=== PATIENT | male | born 1965 | race African-American/Black ===

== ENCOUNTER 2018-03-15 23:03 | Inpatient (IN) | payer SELFPAY ==
--- NOTE | 2018-03-15 23:18 | ER Document Report ---
ED General - General Stated Complaint: CHEST PAIN Time Seen by Provider: 03/15/18 23:08 Notes: Patient is a 52-year-old male who presents with complaint of difficulty breathing and chest pain with palpitations and feel like his heart was racing. When paramedics arrived he was very short of breath. The placed him on 4 L of oxygen because O2 saturations were in the 80s. Patient was found to be in a rapid narrow complex irregular rhythm. They gave him 20 mg of Cardizem IV. This slowed down his rhythm and he is now showing atrial flutter. Patient says he has some chest tightness. He was given nitro as well as fentanyl. He said this did improve his chest tightness on but also the swelling of the right significantly improved his chest tightness. He still feels short of breath. He still requiring oxygen. He still hypoxic. He does not wear oxygen at baseline. He is a smoker. He said he was told once before that an VT however when he visited the lead warehouse associate they informed him that he actually did not have an VT. No history of cardiac stents. No recent fevers or infections. No other complaints at this time. Past Medical History - Social History Smoking Status: Current Every Day Smoker Frequency of alcohol use: None Drug Abuse: None Family History: Reviewed & Not Pertinent Review of Systems - Review of Systems Notes: My Normal Review Basic REVIEW OF SYSTEMS: CONSTITUTIONAL : Denies fever, chills, or sweats. Denies recent illness. EENT: Denies eye, ear, throat, or mouth pain or symptoms. Denies nasal or sinus congestion. CARDIOVASCULAR: Chest tightness. RESPIRATORY: Dyspnea GASTROINTESTINAL: Denies abdominal pain. Denies nausea, vomiting, or diarrhea. GENITOURINARY: Denies difficulty urinating, painful urination, burning, frequency, or blood in urine. MUSCULOSKELETAL: Denies neck or back pain or joint pain or swelling. SKIN: Denies rash or skin lesions. NEUROLOGICAL: Denies altered mental status or loss of consciousness. Denies headache. Denies weakness or paralysis or loss of use of either side. Denies problems with gait or speech. Denies sensory or motor loss. ALL OTHER SYSTEMS REVIEWED AND NEGATIVE. Physical Exam - Vital signs Vitals: Temp Pulse Resp BP Pulse Ox 98.4 F 61 28 H 156/82 H 91 L 03/15/18 23:14 03/15/18 23:14 03/15/18 23:14 03/15/18 23:14 03/15/18 23:14 - Notes Notes: General Appearance: Well nourished, alert, cooperative, moderate acute distress , no obvious discomfort. Vitals: reviewed, See vital signs table. Head: no swelling or tenderness to the head Eyes: PERRL, EOMI, Conjuctiva clear Mouth: No decreasd moisture Throat: No tonsillar inflammation, No airway obstruction, No lymphadenopathy Neck: Supple, no neck tenderness, No thyromegaly Lungs: Mild scattered wheezing, No rales, No rhonci, No accessory muscle use, good air exchange bilaterally. Heart: Normal rate, Irregular rythm, No murmur, no rub Abdomen: Normal BS, soft, No rigidity, No abdominal tenderness, No guarding, no rebound, no abdominal masses, no organomegaly Extremities: strength 5/5 in all extremities, good pulses in all extremities, no swelling or tenderness in the extremities, 1+ B/L edema. Skin: warm, dry, appropriate color, no rash Neuro: speech clear, oriented x 3, normal affect, responds appropriately to questions. Course - Re-evaluation Re-evalutation: 03/15/18 23:14 EKG is reviewed and interpreted by me. EKG shows atrial flutter with variable block. He ranges are from a 3-1 4-1 block. Rate is proximally [address] segment elevation in lead V3. Mild ST segment depression in lead V5 and V6. QRS duration QTc intervals are within normal range. Currently I do not have an old EKG for comparison being that the patient's name is placed in the system incorrectly and therefore I cannot look up his old EKG at this time. 03/16/18 00:51 Patient's heart rates are increased some and it was causing become symptomatic and we are starting some chest tightness and shortness of breath. Despite this he still is very comfortable however being that the Cardizem bolus started to wear off and his heart rate was increasing I did want to start on Cardizem drip. I order inform the nurse. Now or not allowed to mix drips down here so as to go to the nursing marina sales and service supervisor. Nursing marina sales and service supervisor was informed approximately hour ago and she still has not brought back to the drip and now the patient's heart rate is starting to increase and is get more comfortable. I therefore have ordered a repeat bolus of Cardizem. 03/16/18 01:59 Patient still feels short of breath and having some recurrent chest pain despite having lung felder. I will do a CT of the chest to make sure patient does not have evidence of PE. - Vital Signs Vital signs: Temp Pulse Resp BP Pulse Ox 98.4 F 61 16 138/90 H 99 03/15/18 23:14 03/15/18 23:14 03/16/18 02:41 03/16/18 02:41 03/16/18 02:41 - Laboratory Result Diagrams: 03/15/18 23:21 03/15/18 23:21 Laboratory results interpreted by me: 03/15/18 03/15/18 03/15/18 23:21 23:21 23:21 WBC 12.1 H RBC 3.95 L Hgb 13.0 L MCV 98 H Absolute Neutrophils 8.5 H Chloride 108 H BUN 22 H NT-Pro-B Natriuret Pep 1600 H Discharge - Discharge Clinical Impression: Atrial flutter Qualifiers: Atrial flutter type: unspecified Qualified Code(s): I48.92 - Unspecified atrial flutter Pulmonary edema Qualifiers: Chronicity: acute Qualified Code(s): J81.0 - Acute pulmonary edema Chest pain Qualifiers: Chest pain type: unspecified Qualified Code(s): R07.9 - Chest pain, unspecified Condition: Stable Disposition: ADMITTED INPATIENT Admitting Provider: Hospitalist Unit Admitted: [facility]
[2018-03-15 23:38] LABS: ABSOLUTE BASOPHILS # (AUTO) 0.1 10^3/uL (0.0-0.2); ABSOLUTE EOSINOPHILS # (AUTO) 0.1 10^3/uL (0.0-0.6); ABSOLUTE LYMPHOCYTES (AUTO) 2.4 10^3/uL (0.5-4.7); ABSOLUTE NEUT (AUTO) 8.5 10^3/uL (1.7-8.2); BASOPHILS % (AUTO) 0.7 % (0-2); EOSINOPHILS % (AUTO) 0.9 % (0-6); HEMATOCRIT 38.6 % (37.9-51.0); LYMPHOCYTES % (AUTO) 19.5 % (13-45); MEAN CORPUSCULAR HEMOGLOBIN 32.9 pg (27.0-33.4); MEAN CORPUSCULAR HGB CONC 33.7 g/dL (32.0-36.0); MEAN CORPUSCULAR VOLUME 98 fl (80-97); MONOCYTES % (AUTO) 8.3 % (3-13); PLATELET COUNT 232 10^3/uL (150-450); RED BLOOD COUNT 3.95 10^6/uL (4.35-5.55); RED CELL DISTRIBUTION WIDTH 12.8 % (11.5-14.0); SEGMENTED NEUTROPHILS % (AUTO) 70.6 % (42-78); TOTAL CELLS COUNTED % (AUTO) 100 %; WHITE BLOOD COUNT 12.1 10^3/uL (4.0-10.5)
[2018-03-16] LABS: ALANINE AMINOTRANSFERASE 39 U/L (21-72); ALBUMIN 3.8 g/dL (3.5-5.0); ALKALINE PHOSPHATASE 72 U/L (38-126); ANION GAP 7 (5-19); ASPARTATE AMINO TRANSFERASE 32 U/L (17-59); BILIRUBIN,DIRECT 0.3 mg/dL (0.0-0.4); BILIRUBIN,TOTAL 0.9 mg/dL (0.2-1.3); BLOOD UREA NITROGEN 22 mg/dL (7-20); CALCIUM 9.2 mg/dL (8.4-10.2); CARBON DIOXIDE 25 mmol/L (22-30); CHLORIDE 108 mmol/L (98-107); GLUCOSE 100 mg/dL (75-110); POTASSIUM 4.1 mmol/L (3.6-5.0); SODIUM 139.7 mmol/L (137-145); TOTAL PROTEIN 6.9 g/dL (6.3-8.2)
[2018-03-16 00:11] LABS: TROPONIN I 0.018 ng/mL
--- NOTE | 2018-03-16 00:11 | RADIOLOGY REPORT (SQ) ---
EXAM DESCRIPTION: XR CHEST 1 VIEW COMPLETED DATE/TME: 03/15/2018 23:13 CLINICAL HISTORY: 52 years, Male, dyspnea COMPARISON: None. NUMBER OF VIEWS: One TECHNIQUE: AP view of the chest LIMITATIONS: None. FINDINGS: Mild pulmonary vascular congestion. The heart is enlarged. There is no pneumothorax or pleural effusion. There is no acute fracture. IMPRESSION: Mild pulmonary vascular congestion 2010 [facility] [employer]- All Rights Reserved
[2018-03-16] MEDS ORDERED: DILTIAZEM HCL INJ 25 MG/5 ML VIAL IV ONE (00:46)
[2018-03-16] MEDS: DILTIAZEM HCL/D5W 125 MG/125 ML RTUINJ IV PRN ×2 (01:00→08:56)
[2018-03-16] MEDS ORDERED: NORMAL SALINE 500 ML IV ONE (01:59)
[2018-03-16] MEDS ORDERED: MORPHINE SULFATE 10 MG/ML INJ IV ONE (01:59)
--- NOTE | 2018-03-16 02:55 | RADIOLOGY REPORT (SQ) ---
CLINICAL HISTORY: dyspnea, chest pain COMPARISON: None. TECHNIQUE: CT CHEST ANGIOGRAPHY WITHOUT THEN WITH IV CONTRAST on 03/16/2018 1:58 AM CDT. MIPS reconstructions were generated. This exam was performed according to our departmental dose-optimization program, which includes automated exposure control, adjustment of the mA and/or kV according to patient size and/or use of iterative reconstruction technique. MIP images were generated. FINDINGS: Thoracic aorta is normal in course and caliber without aneurysm or dissection. Pulmonary arteries are adequately opacified without acute or chronic filling defects. The heart is moderately enlarged. There is no pericardial effusion. Intrathoracic lymph nodes are not enlarged. There is a trace left pleural effusion. There is a small right pleural effusion. Central airways are patent. There is interlobular septal thickening in the lower lungs. There is patchy bibasilar airspace disease. There are no acute abnormalities within the limited images of the upper abdomen. There are no acute osseous findings. No suspicious bony lesions. IMPRESSION: No aortic dissection or aneurysm. No pulmonary embolus. Cardiomegaly with pleural effusions, probable pulmonary edema. Difficult to exclude developing bibasilar pneumonia.
[2018-03-16] MEDS ORDERED: FUROSEMIDE INJ/PF 40 MG/4 ML SDV IV ONE (03:11)
[2018-03-16] MEDS ORDERED: MAG HYDROX/AL HYDROX/SIMETH SUSP 30 ML UDCUP PO PRN (03:29)
[2018-03-16] MEDS ORDERED: ACETAMINOPHEN 325 MG TABLET PO PRN (03:29)
[2018-03-16] MEDS ORDERED: PROMETHAZINE HCL INJ 25 MG/1 ML VIAL IV PRN (03:29)
[2018-03-16] MEDS ORDERED: IPRATROPIUM/ALBUTEROL 0.5-2.5 MG/3 ML AMPUL NEB PRN (03:29)
[2018-03-16] MEDS ORDERED: PROMETHAZINE HCL 25 MG TABLET PO PRN (03:29)
[2018-03-16 03:46] LABS: INTERNATIONAL RATION (INR) 0.96; PROTHROMBIN TIME 13.3 SEC (11.4-15.4)
[2018-03-16] MEDS ORDERED: DILTIAZEM HCL 30 MG TABLET PO ONE (03:50)
[2018-03-16] MEDS ORDERED: NICOTINE 14 MG/24 HR PATCH.TD24 TD PRN (04:13)
[2018-03-16] MEDS ORDERED: METOPROLOL TARTRATE PF/INJ 5 MG/5 ML SDV IV PRN (04:47)
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
[2018-03-16] MEDS: ENOXAPARIN SODIUM INJ 100 MG/1 ML DISP.SYRIN SUBCUT SCH ×2 (05:24→17:21)
[2018-03-16 06:32] LABS: ARTERIAL BLOOD BASE EXCESS -0.5 mmol/L; ARTERIAL BLOOD FIO2 40%; ARTERIAL BLOOD HCO3 22.7 mmol/L (20-24); ARTERIAL BLOOD O2 SATURATION 97.5 % (94-98); ARTERIAL BLOOD PCO2 33.2 mmHg (35-45); ARTERIAL BLOOD PH 7.45 (7.35-7.45); ARTERIAL BLOOD PO2 93.8 mmHg (80-100); ARTERIAL BLOOD TOTAL CO2 23.7 mmol/L (23-27)
--- NOTE | 2018-03-16 08:24 | EKG REPORT ---
SEVERITY:- ABNORMAL ECG - A-FLUTTER W/ PREDOM 4:1 AV BLOCK, A-RATE 258 LVH WITH SECONDARY REPOLARIZATION ABNORMALITY ANTERIOR INFARCT, AGE INDETERMINATE : Confirmed by: Jaziel Woodson 16-Mar-2018 08:23:44
[2018-03-16] MEDS ORDERED: FUROSEMIDE INJ/PF 40 MG/4 ML SDV IV SCH (10:00)
[2018-03-16] MEDS ORDERED: ENOXAPARIN SODIUM INJ 40 MG/0.4 ML DISP.SYRIN SUBCUT SCH (10:00)
[2018-03-16 11:10] LABS: APPEARANCE,URINE CLEAR; BILIRUBIN,URINE NEGATIVE (NEGATIVE); COLOR,URINE COLORLESS; GLUCOSE, URINE NEGATIVE (NEGATIVE); KETONES,URINE NEGATIVE (NEGATIVE); LEUKOCYTE ESTERASE,URINE NEGATIVE (NEGATIVE); NITRITE,URINE NEGATIVE (NEGATIVE); PROTEIN,URINE NEGATIVE (NEGATIVE); URINE SPECIFIC GRAVITY 1.005; UROBILINOGEN,URINE NEGATIVE mg/dL (<2.0)
[2018-03-16 11:32] LABS: URINE AMPHETAMINES SCREEN NEGATIVE; URINE BARBITURATES SCREEN NEGATIVE; URINE BENZODIAZEPINES SCREEN NEGATIVE; URINE COCAINE SCREEN NEGATIVE; URINE MARIJUANA (THC) SCREEN NEGATIVE; URINE METHADONE SCREEN NEGATIVE; URINE PHENCYCLIDINE SCREEN NEGATIVE
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
[2018-03-16] MEDS: LOSARTAN POTASSIUM 25 MG TABLET PO SCH (12:57)
[2018-03-16] MEDS ORDERED: METOPROLOL TARTRATE 25 MG TABLET PO ONE (15:42)
--- NOTE | 2018-03-16 18:34 | XCELERA REPORT ---
[address] [address] Transthoracic Echocardiogram Report Name: SOCORRO FLORES Age: 52 yrs Gender: Male : 1965 Patient Status: Inpatient Patient Location: [address] [place] [address] Study Date: 03/16/2018 09:40 AM Height: 72 in Weight: 194 lb BSA: 2.1 m2 Procedure: A complete two-dimensional transthoracic echocardiogram was performed (2D, M-mode, spectral and color flow Doppler). The study was technically adequate with some images being suboptimal in quality. Reason For Study: a flutter Ordering Physician: TIFFANY AUGUSTIN Performed By: Shira Dobbins Interpretation Summary LV diastolic function could not be adequately assessed due to atrial fibrilation. Left ventricular systolic function is low normal. There is mild concentric left ventricular hypertrophy. The left ventricle is grossly normal size. Wall motion cannot be accurately commented on, but no definite regional wall motion abnormalities noted. The right ventricular systolic function is normal. The right ventricle is mildly dilated. The right atrium is mildly dilated. The left atrium is moderately dilated. There is no mitral valve stenosis. There is a mild amount of mitral regurgitation There is no aortic valve stenosis There is a trace amount of aortic regurgitation There is a trace or physiologic amount of tricuspid regurgitation Tricuspid regurgitation jet envelope not well defined to measure RV systolic pressure accurately. The aortic root is not well visualized but is probably normal size. The inferior vena cava appeared normal and decreased > 50% with respiration (RAP 5-10 mmHg) There is no pericardial effusion. MMode/2D Measurements & Calculations RVDd: 3.6 cm LVIDd: 6.1 cm FS: 35.0 % Ao root diam: 3.3 cm IVSd: 1.0 cm LVIDs: 4.0 cm EDV(Teich): 186.7 ml Ao root area: 8.6 cm2 LVPWd: 1.00 cm ESV(Teich): 68.5 ml LA dimension: 4.8 cm EF(Teich): 63.3 % Doppler Measurements & Calculations MV E max bereket: MV P1/2t max bereket: Ao V2 max: LV V1 max P.4 cm/sec 80.5 cm/sec 127.6 cm/sec 4.7 mmHg MV A max bereket: MV P1/2t: 43.6 msec Ao max PG: LV V1 max: 43.9 cm/sec MVA(P1/2t): 5.0 cm2 6.5 mmHg 108.1 cm/sec MV E/A: 1.9 MV dec slope: 540.7 cm/sec2 MV dec time: 0.13 sec PA V2 max: PI end-d bereket: TR max bereket: MV P1/2t-pr_phl: 82.9 cm/sec 127.0 cm/sec 209.6 cm/sec 43.6 msec PA max PG: TR max P.8 mmHg 17.6 mmHg Left Ventricle The left ventricle is grossly normal size. There is mild concentric left ventricular hypertrophy. Left ventricular systolic function is low normal. LV diastolic function could not be adequately assessed due to atrial fibrilation. Wall motion cannot be accurately commented on, but no definite regional wall motion abnormalities noted. Right Ventricle The right ventricle is mildly dilated. There is normal right ventricular wall thickness. The right ventricular systolic function is normal. Atria The right atrium is mildly dilated. The left atrium is moderately dilated. Interarterial septum not well visualized and not well dopplered. Cannot comment on ASD/PFO presence. Mitral Valve The mitral valve is grossly normal. There is no mitral valve stenosis. There is a mild amount of mitral regurgitation. Aortic Valve The aortic valve is grossly normal. There is no aortic valve stenosis. There is a trace amount of aortic regurgitation. Tricuspid Valve The tricuspid valve is not well visualized, but is grossly normal. There is no tricuspid stenosis. There is a trace or physiologic amount of tricuspid regurgitation. Tricuspid regurgitation jet envelope not well defined to measure RV systolic pressure accurately. Pulmonic Valve The pulmonic valve is not well visualized. Great Vessels The aortic root is not well visualized but is probably normal size. The inferior vena cava appeared normal and decreased > 50% with respiration (RAP 5-10 mmHg). Effusions There is no pericardial effusion. : TIFFANY AUGUSTIN > Jaziel Woodson
--- NOTE | 2018-03-16 20:06 | PDOC PROGRESS REPORT ---
Subjective Progress Note for:: 03/16/18 Subjective:: Still feels somewhat poorly. He still has low-grade chest discomfort that radiates to his back. His rate is still variable. He denies overt shortness of breath but just has not been feeling "better" yet. Reason For Visit: RAPID ATRIAL FLUTTER Physical Exam Vital Signs: Temp Pulse Resp BP Pulse Ox 99.0 F 66 23 H 138/76 H 95 03/16/18 15:13 03/16/18 17:00 03/16/18 15:13 03/16/18 17:00 03/16/18 15:13 Intake & Output 03/15/18 03/16/18 03/17/18 06:59 06:59 06:59 Intake Total 500 818 Output Total 2875 Balance 500 -2057 Weight 86 kg General appearance: PRESENT: no acute distress, cooperative, well-developed, well-nourished Head exam: PRESENT: atraumatic, normocephalic Eye exam: PRESENT: conjunctiva pink, EOMI. ABSENT: scleral icterus Ear exam: PRESENT: normal external ear exam Mouth exam: PRESENT: moist Neck exam: PRESENT: full ROM. ABSENT: tenderness, thyromegaly Respiratory exam: PRESENT: clear to auscultation angie. ABSENT: rales, rhonchi, wheezes Cardiovascular exam: PRESENT: irregular rhythm, tachycardia Pulses: PRESENT: normal radial pulses GI/Abdominal exam: PRESENT: normal bowel sounds, soft. ABSENT: distended, organolmegaly, tenderness Rectal exam: PRESENT: deferred Extremities exam: ABSENT: calf tenderness, pedal edema Musculoskeletal exam: PRESENT: normal inspection Neurological exam: PRESENT: alert, awake, oriented to person, oriented to place , oriented to time, oriented to situation Psychiatric exam: PRESENT: appropriate affect, flat affect Skin exam: PRESENT: dry, intact, warm. ABSENT: cyanosis, rash Results Laboratory Results: 03/16/18 03/16/18 06:10 10:45 Carbonic Acid 1.00 L HCO3/H2CO3 Ratio 22:1 ABG pH 7.45 ABG pCO2 33.2 L ABG pO2 93.8 ABG HCO3 22.7 ABG O2 Saturation 97.5 ABG Base Excess -0.5 FiO2 40% Urine Color COLORLESS Urine Appearance CLEAR Urine pH 7.0 Ur Specific [place] 1.005 Urine Protein NEGATIVE Urine Glucose (UA) NEGATIVE Urine Ketones NEGATIVE Urine Blood NEGATIVE Urine Nitrite NEGATIVE Ur Leukocyte Esterase NEGATIVE Urine WBC (Auto) 0 03/16/18 03/16/18 03/16/18 06:05 11:02 17:28 Troponin I 0.019 0.015 0.014 Impressions: Chest X-Ray 03/15/18 23:13 IMPRESSION: Mild pulmonary vascular congestion 2010 [employer]- All Rights Reserved Chest/Abdomen CTA 03/16/18 01:58 IMPRESSION: No aortic dissection or aneurysm. No pulmonary embolus. Cardiomegaly with pleural effusions, probable pulmonary edema. Difficult to exclude developing bibasilar pneumonia. Assessment & Plan - Diagnosis (1) Atrial flutter Qualifiers: Atrial flutter type: unspecified Qualified Code(s): I48.92 - Unspecified atrial flutter Is this a current diagnosis for this admission?: Yes Plan: The patient's rate was variable and his response to diltiazem has been inconsistent. With an increased rate of 15 mg he would become bradycardic. At 10 mg he still exhibited fluctuations in his rate and rhythm. I started him on twice daily metoprolol and will discontinue the diltiazem infusion if the metoprolol is effective. In addition the patient was placed on furosemide for an elevated pro BNP. His chest x-ray in fact was clear as well as his exam. I have discontinued the intravenous furosemide and change the patient to 40 mg by mouth twice a day. I will continue to wean the medication to a baseline dose. I have also ordered electrolyte studies and a repeat BNP for the morning. (2) Chest pain Qualifiers: Chest pain type: precordial pain Qualified Code(s): R07.2 - Precordial pain Is this a current diagnosis for this admission?: Yes Plan: The patient is still having some chest discomfort. I feel that it is most likely related to his right. He is not exhibiting any of the typical anginal characteristics of radiation to his jaw or down his arm. He is not diaphoretic. I believe that with better rate control his discomfort will resolve. - Time Time Spent with patient: 25-34 minutes Medications reviewed and adjusted accordingly: Yes Anticipated discharge: Home - Inpatient Certification Based on my medical assessment, after consideration of the patient's comorbidities, presenting symptoms, or acuity I expect that the services needed warrant INPATIENT care.: Yes I certify that my determination is in accordance with my understanding of Medicare's requirements for reasonable and necessary INPATIENT services [42 CFR 412.3e].: Yes Medical Necessity: Significant Comorbidiites Make Outpatient Treatment Too Risky , Need Close Monitoring Due to Risk of Patient Decompensation, Need For Continuous Telemetry Monitoring
--- NOTE | 2018-03-16 21:01 | EKG REPORT ---
SEVERITY:- ABNORMAL ECG - ATRIAL FIBRILLATION PAIRED VENTRICULAR PREMATURE COMPLEXES LVH WITH SECONDARY REPOLARIZATION ABNORMALITY ANTERIOR Q WAVES, POSSIBLY DUE TO LVH ST DEPRESSION, CONSIDER ISCHEMIA, ANT-LAT LDS BORDERLINE PROLONGED QT INTERVAL : Confirmed by: Jaziel Woodson 16-Mar-2018 21:00:52
[2018-03-16] MEDS: METOPROLOL TARTRATE 50 MG TABLET PO SCH (21:20)
[2018-03-16] MEDS ORDERED: ATORVASTATIN CALCIUM 40 MG TABLET PO SCH (22:00)
[2018-03-17] MEDS: ENOXAPARIN SODIUM INJ 100 MG/1 ML DISP.SYRIN SUBCUT SCH (05:21)
[2018-03-17 06:07] LABS: HEMATOCRIT 38.9 % (37.9-51.0); HEMOGLOBIN 13.5 g/dL (13.5-17.0); MEAN CORPUSCULAR HEMOGLOBIN 33.6 pg (27.0-33.4); MEAN CORPUSCULAR HGB CONC 34.6 g/dL (32.0-36.0); MEAN CORPUSCULAR VOLUME 97 fl (80-97); PLATELET COUNT 214 10^3/uL (150-450); RED BLOOD COUNT 4.01 10^6/uL (4.35-5.55); WHITE BLOOD COUNT 7.7 10^3/uL (4.0-10.5)
[2018-03-17 06:39] LABS: ANION GAP 8 (5-19); BLOOD UREA NITROGEN 24 mg/dL (7-20); CALCIUM 9.2 mg/dL (8.4-10.2); CARBON DIOXIDE 26 mmol/L (22-30); CHLORIDE 106 mmol/L (98-107); GLUCOSE 118 mg/dL (75-110); POTASSIUM 3.9 mmol/L (3.6-5.0); SODIUM 139.8 mmol/L (137-145)
[2018-03-17 06:52] LABS: ARTERIAL BLOOD BASE EXCESS 2.4 mmol/L; ARTERIAL BLOOD H2CO3 1.42 mmol/L (1.05-1.35); ARTERIAL BLOOD HCO3 28.1 mmol/L (20-24); ARTERIAL BLOOD O2 SATURATION 98.7 % (94-98); ARTERIAL BLOOD PCO2 47.3 mmHg (35-45); ARTERIAL BLOOD PH 7.39 (7.35-7.45); ARTERIAL BLOOD PO2 140.3 mmHg (80-100); ARTERIAL BLOOD TOTAL CO2 29.5 mmol/L (23-27)
[2018-03-17 06:53] LABS: ARTERIAL BLOOD FIO2 40%
[2018-03-17] MEDS ORDERED: FUROSEMIDE 40 MG TABLET PO SCH (10:00)
--- NOTE | 2018-03-17 10:46 | EKG REPORT ---
SEVERITY:- ABNORMAL ECG - SINUS RHYTHM LEFT VENTRICULAR HYPERTROPHY ANTERIOR Q WAVES, POSSIBLY DUE TO LVH NONSPECIFIC T ABNORMALITIES, INFERIOR LEADS : Confirmed by: Jaziel Woodson 17-Mar-2018 10:44:56
[2018-03-17] MEDS: LOSARTAN POTASSIUM 25 MG TABLET PO SCH (11:08)
[2018-03-17] MEDS: METOPROLOL TARTRATE 50 MG TABLET PO SCH (11:09)
[2018-03-17] MEDS ORDERED: AMINOPHYLLINE INJ/PF 250 MG/10 ML SDV IV ONE (11:59)
[2018-03-17] MEDS ORDERED: REGADENOSON INJ 0.4 MG/5 ML DISP.SYRIN IV ONE (11:59)
--- NOTE | 2018-03-17 13:14 | DRAGON STRESS TEST REPORT ---
INTRAVENOUS LEXISCAN CARDIOLITE STRESS TEST USING SINGLE PHOTON EMMISION COMPUTERIZED TOMOGRAPHIC. DATE OF PROCEDURE: March 17, 2018, INDICATION : Chest pain and atrial fibrillation CARDIAC RISK FACTORS: Hypertension, dyslipidemia, tobacco abuse. RESTING EKG: Sinus rhythm, LVH with secondary ST-T wave changes STRESS EKG: No significant additional ST segment changes noted with LexiScan bolus REASON FOR TERMINATION: Protocol. PROCEDURE REPORT: Baseline heart rate 59 beats per minute with blood pressure of 121/73. Patient had no significant complaints. Patient was bolused with Lexiscan 0.4 mg intravenously followed by saline bolus. Heart rate at 2 minutes post bolus 68 with a blood pressure of 132/70. 3 minutes post bolus heart rate 60 with blood pressure of 125/73. No significant EKG changes were noted. Patient had no significant complaints during the procedure or postprocedure. CONCLUSIONS: Normal EKG and hemodynamic response to IV LexiScan. NUCLEAR DATA: At rest the patient was given 12.54 millicuries of technetium 99 sestamibi injected intravenously. As per protocol rest gated SPECT images were obtained. On day of stress test, the patient was given intravenous LexiScan at a dose of 0.4 mg in 5 mL intravenously, followed by flush with normal saline. Subsequently the stress dose of 36.4 millicuries of technetium 99 sestamibi was injected intravenously. As per protocol stress gated images were obtained. NUCLEAR INTERPRETATION: Both raw and processed data were used for interpretation. Visual, qualitative, computer-generated quantitative data was used. There was good myocardial uptake of technetium compound. Motion artifact and soft tissue attenuations were noted. Increased visceral uptake was noted. No definitive areas of transient perfusion defect noted except for mild decreased uptake in the distal inferior wall, possibly mild ischemia with SDS of 1 but could well be due to differences in diaphragmatic attenuation artifact. No corresponding regional wall motion normalities were noted. Overall very small area therefore overall low risk. No definitive areas of fixed perfusion defect or scars noted. EKG gated imaging showed LV EF at 39 %, rest and stress gated EF similar visually. T. I D. ratio was 0.97. Lung heart ratio noted to be within normal limits 0.34. No significant extracardiac and abnormal radiotracer activities were noted. RV free wall uptake was noted to be WNL. IMPRESSION: Also refer to comments under nuclear interpretation. Also test results needs to be interpreted in the context of pretest probability. 1. No definitive areas of transient perfusion defect noted except for mild decreased uptake in the distal inferior wall, possibly mild ischemia with SDS of 1 but could well be due to differences in diaphragmatic attenuation artifact. No corresponding regional wall motion normalities were noted. Overall very small area therefore overall low risk. 2. There is no definitive scintigraphic evidence of myocardial infarction/scar. 3. EKG gated imaging shows left ventricular ejection fraction of approx. 39 %. LVH noted. EKG gated LVEF may be falsely low in presence of LVH. 4. Clinical correlation requested as worse disease and or balanced ischemia could be missed. In approximately 10% of the cases Lexiscan may not cause adequate vasodilatory stress. RECOMMENDATIONS: Aggressive risk factor modification and medical management. Further evaluation may be needed if continued symptoms or other high risk indicators are noted on clinical evaluation. Close cardiology follow-up is also recommended. Clinical correlation with echocardiogram derived ejection fraction. Inability to exercise by itself can lead to increased cardiovascular event risks. Consider cardiology consultation and or follow-up if clinically indicated. I am available for cardiology evaluation and consultation if requested by the investigations manager, unless patient already has a bone plant supervisor. Dr. Kathy Woodson. MRCP Board certified in cardiology and sleep medicine. Board certified in nuclear cardiology, adult echocardiography. HARLAN
[2018-03-17 17:01] VITALS: BP 156/82
--- NOTE | 2018-03-17 18:05 | PDOC DISCHARGE SUMMARY ---
General - Admit/Disc Date/PCP Admission Date/Primary Care Provider: 03/16/18 03:22 Discharge Date: 03/17/18 - Discharge Diagnosis (1) Atrial flutter Is this a current diagnosis for this admission?: Yes Summary: This pleasant 52-year-old patient was admitted with acute onset atrial flutter. In fact this is been an ongoing problem for 4-5 years but because of lack of health insurance he has not sought treatment or follow-up. He was initially on intravenous diltiazem and now with the addition of metoprolol he is back in sinus rhythm. An echocardiogram showed slightly decreased ejection fraction and his Cardiolite stress test suggested a small area of possible hypoperfusion versus diaphragmatic attenuation. The patient has been chest pain-free. We were able to acquire one month supply of his medications. Unfortunately he is from [place] and he will be driving back tomorrow. I stressed the need for a follow-up visit with cardiology and I believe the staff is calling his home town to find a c[employer]o.d. biller for follow-up if possible. Because of the cardiac issues the patient will be discharged on a beta-dagmar, diuretic, angiotensin receptor dagmar and anticoagulation. (2) Chest pain Is this a current diagnosis for this admission?: Yes Summary: With his conversion to sinus rhythm and good rate control his chest pain resolved. - Additional Information Resuscitation Status: Full Code Discharge Diet: Cardiac Discharge Activity: Activity As Tolerated, Balance Activity w/Rest, Energy Conservation, No Lifting/Push/Pulling, Weigh Daily Prescriptions: Atorvastatin Calcium [Lipitor 40 mg Tablet] 40 mg PO QHS #30 tablet Furosemide [Lasix 40 mg Tablet] 40 mg PO BID #60 tablet Losartan Potassium [Cozaar 25 mg Tablet] 25 mg PO DAILY #30 tablet Metoprolol Tartrate [Lopressor 50 mg Tablet] 50 mg PO Q12 #60 tablet Rivaroxaban [Xarelto] 20 mg PO DAILY #30 tablet Home Medications: Aspirin [Adult Aspirin Regimen] 81 mg PO DAILY 03/16/18 Acetaminophen [Tylenol 325 mg Tablet] 650 mg PO Q4HP PRN tablet 03/17/18 Atorvastatin Calcium [Lipitor 40 mg Tablet] 40 mg PO QHS #30 tablet 03/17/18 Furosemide [Lasix 40 mg Tablet] 40 mg PO BID #60 tablet 03/17/18 Losartan Potassium [Cozaar 25 mg Tablet] 25 mg PO DAILY #30 tablet 03/17/18 Metoprolol Tartrate [Lopressor 50 mg Tablet] 50 mg PO Q12 #60 tablet 03/17/18 Nicotine [Nicoderm 14 mg/24 Hr Transdermal Patch] 1 each TD DAILYP PRN patch.td24 03/17/18 Rivaroxaban [Xarelto] 20 mg PO DAILY #30 tablet 03/17/18 History of Present Illness History of Present Illness: SOCORRO FLORES is a 52 year old male Physical Exam Vital Signs: Temp Pulse Resp BP Pulse Ox 97.4 F 57 L 18 156/82 H 95 03/17/18 17:00 03/17/18 17:00 03/17/18 17:00 03/17/18 17:00 03/17/18 17:00 Intake & Output 03/16/18 03/17/18 03/18/18 06:59 06:59 06:59 Intake Total 500 818 675 Output Total 2975 400 Balance 500 -2157 275 Weight 86 kg 87 kg General appearance: PRESENT: no acute distress, cooperative, well-developed, well-nourished Head exam: PRESENT: atraumatic, normocephalic Eye exam: PRESENT: conjunctiva pink. ABSENT: scleral icterus Ear exam: PRESENT: normal external ear exam Mouth exam: PRESENT: moist, neck supple Teeth exam: PRESENT: poor dentation Neck exam: PRESENT: full ROM. ABSENT: JVD, lymphadenopathy Respiratory exam: PRESENT: clear to auscultation angie, symmetrical. ABSENT: rales, rhonchi, wheezes Cardiovascular exam: PRESENT: RRR, +S1, +S2 Pulses: PRESENT: normal radial pulses GI/Abdominal exam: PRESENT: normal bowel sounds, soft. ABSENT: distended, tenderness Rectal exam: PRESENT: deferred Extremities exam: PRESENT: full ROM. ABSENT: pedal edema, tenderness Musculoskeletal exam: PRESENT: ambulatory Neurological exam: PRESENT: alert, awake, oriented to person, oriented to place , oriented to time, oriented to situation Psychiatric exam: PRESENT: appropriate affect, normal mood Skin exam: PRESENT: dry, intact, warm. ABSENT: cyanosis, rash Results Laboratory Results: 03/17/18 05:22 03/17/18 05:22 03/17/18 03/17/18 03/17/18 05:22 05:22 06:35 WBC 7.7 RBC 4.01 L Hgb 13.5 Hct 38.9 MCV 97 MCH 33.6 H MCHC 34.6 RDW 13.0 Plt Count 214 Carbonic Acid 1.42 H HCO3/H2CO3 Ratio 19:1 ABG pH 7.39 ABG pCO2 47.3 H ABG pO2 140.3 H ABG HCO3 28.1 H ABG O2 Saturation 98.7 H ABG Base Excess 2.4 FiO2 40% Sodium 139.8 Potassium 3.9 Chloride 106 Carbon Dioxide 26 Anion Gap 8 BUN 24 H Creatinine 0.72 Est GFR ( Amer) > 60 Est GFR (Non-Af Amer) > 60 Glucose 118 H Calcium 9.2 Magnesium 2.0 03/16/18 03/16/18 03/16/18 06:05 11:02 17:28 Troponin I 0.019 0.015 0.014 NT-Pro-B Natriuret Pep 03/17/18 05:22 Troponin I NT-Pro-B Natriuret Pep 292 Impressions: Chest X-Ray 03/15/18 23:13 IMPRESSION: Mild pulmonary vascular congestion 2010 [employer]- All Rights Reserved Chest/Abdomen CTA 03/16/18 01:58 IMPRESSION: No aortic dissection or aneurysm. No pulmonary embolus. Cardiomegaly with pleural effusions, probable pulmonary edema. Difficult to exclude developing bibasilar pneumonia. Qualifiers - * PATIENT BEING DISCHARGED WITH ANY OF THE FOLLOWING DIAGNOSIS: No Plan Time Spent: Greater than 30 Minutes
== END 2018-03-17 17:00 | disposition home or self-care (01) | DRG 310 ==
LOC: ER 23:03 → EDSEX 23:03 → EH 03-16 03:22 → 3S 03-16 11:08
PROVIDERS: ADMIT Internal Medicine; ATTEND Internal Medicine
DX: I48.92 Unspecified atrial flutter (principal); I10 Essential (primary) hypertension; T46.5X6A Underdosing of other antihypertensive drugs, initial encounter; F17.210 Nicotine dependence, cigarettes, uncomplicated; Z91.120 Patient's intentional underdosing of medication regimen due to financial hardship; Z90.49 Acquired absence of other specified parts of digestive tract; Z87.81 Personal history of (healed) traumatic fracture; Z82.49 Family history of ischemic heart disease and other diseases of the circulatory system; Z80.1 Family history of malignant neoplasm of trachea, bronchus and lung; Z79.82 Long term (current) use of aspirin; Z23 Encounter for immunization
CPT/HCPCS: 36415; 36600; 71045; 71275; 78452; 80048; 80053; 80307; 81001; 82803; 83036; 83735; 83880; 84443; 84484; 85025; 85027; 85610; 90686; 93005; 93010; 93017; 93306; 94660; 96361; 96374; 96375; 99285; A9500; J0280; J1650; J1940; J2270; J2785; J3490; J7040; L1830; Q9969